=== PATIENT | male | born 1940 | race Caucasian/White ===

== ENCOUNTER 2018-12-03 10:00 | Day surgery (SDC) | payer OTHER ==
[~2018-12-03 10:00] MED LIST: Bupivacaine 0.5% 50 ML MDV ONE; Lidocaine 2% 20 ML MDV ONE
[2018-12-03] MEDS ORDERED: ceFAZolin 2 GM in Premix Bag 1 BAG IV ONE (11:00)
[2018-12-03] MEDS ORDERED: Sodium Chloride 0.9% 1,000 ML IV SCH (11:00)
[2018-12-03] MEDS ORDERED: fentaNYL 100 MCG/2 ML SDV ONE (12:11)
[2018-12-03] MEDS ORDERED: Propofol 200 MG/20 ML SDV ONE (12:11)
--- NOTE | 2018-12-03 17:49 | OR ---
DATE OF PROCEDURE: 12/03/2018 X RAY TECHNOLOGIST: None. PREOPERATIVE DIAGNOSIS: Ulcer left foot, sub fifth metatarsal head. POSTOPERATIVE DIAGNOSES: 1. Ulcer left foot, sub fifth metatarsal head. 2. Soft tissue mass, left foot. ANESTHESIA: Local with IV sedation. HEMOSTASIS: Obtained with an ankle tourniquet on the left ankle, 300 mmHg. ESTIMATED BLOOD LOSS: 10 mL. MATERIALS: None. INJECTABLES: 10 mL of Marcaine 0.5% plain were injected at the beginning of the procedure. PATHOLOGY: Soft tissue mass was sent. CONDITION: Stable. INDICATIONS FOR SURGERY: Recurrent ulcer, sub fifth metatarsal head, left foot, that was unresponsive to conservative measures. PROCEDURE IN DETAIL: The patient was brought to the operating room and placed on the operating table in supine position. Following IV sedation, anesthesia was obtained with a total of 10 mL of Marcaine 0.5% plain. The left foot was then scrubbed, prepped, and draped in the usual aseptic manner. Then, the foot was raised to 60 degrees for hemostasis and exsanguinated using Esmarch bandage. Tourniquet was inflated. Foot was lowered to table. Skin incision was made on the dorsolateral aspect of the left fifth metatarsal head. The incision was 6 cm in length. Incisions were deepened through subcutaneous tissues with care taken to identify and retract all vital neurovascular structures. It was at this point that we noted that there was a soft tissue mass bulging out of the incision, so the soft tissue mass was carefully dissected out using both blunt and sharp dissections with a Whiting tenotomy scissors. It was removed in toto and sent for pathological examination. Then, we made an incision into the fifth metatarsophalangeal joint capsule and carefully dissected the capsule off the fifth metatarsal head. The dorsolateral bony eminence and lateral bony eminence on the fifth metatarsal head were removed and then the plantar distal aspect of the fifth metatarsal head was removed and then smoothed off using hand rasp. The removal was confirmed both visually and fluoroscopically and found to be anatomic. So, then the incision was flushed with copious amounts of sterile saline. Capsular closure was obtained with 3-0 Vicryl, subcutaneous closure with 3-0 Vicryl, and skin closure with 3-0 Prolene in a horizontal mattress configuration. Then, the foot was dressed with Xeroform, 4x4s, Kerlix, and Coban. The patient was returned to recovery room with vital signs stable and neurovascular status intact to both feet. The patient was given instructions to bear weight on the left heel only and not put any weight on the left forefoot and ambulate with a walker. The patient will return to clinic in one week, at which time, he will be re-evaluated. The patient was told to call if he has any other questions or concerns. Austin Foote DPM /[id number]
== END 2018-12-03 15:05 | disposition home or self-care (01) ==
LOC: JP.SDS 10:00
PROVIDERS: ATTEND Podiatrist Foot & Ankle Surgery
DX: L97.522 Non-pressure chronic ulcer of other part of left foot with fat layer exposed (principal); R22.42 Localized swelling, mass and lump, left lower limb; I25.10 Atherosclerotic heart disease of native coronary artery without angina pectoris; I25.2 Old myocardial infarction; I12.9 Hypertensive chronic kidney disease with stage 1 through stage 4 chronic kidney disease, or unspecified chronic kidney disease; N18.3 Chronic kidney disease, stage 3 (moderate); E78.5 Hyperlipidemia, unspecified; K21.9 Gastro-esophageal reflux disease without esophagitis; G20 Parkinson's disease; G62.9 Polyneuropathy, unspecified; Z91.040 Latex allergy status; Z91.048 Other nonmedicinal substance allergy status; Z87.891 Personal history of nicotine dependence; Z79.899 Other long term (current) drug therapy
CPT/HCPCS: 28039; 28288; 88304; J0690; J2001; J2704; J3010; J3490; J7030

== ENCOUNTER 2019-03-03 00:22 | Emergency (ER) | payer OTHER ==
[2019-03-03] MEDS ORDERED: Ibuprofen 600 MG Tab PO ONE (01:07)
--- NOTE | 2019-03-03 01:11 | EDM.PDOC ---
ED HPI GENERAL MEDICAL PROBLEM - General Chief Complaint: Fever Stated Complaint: [facility] Time Seen by Provider: 03/03/19 00:58 Source of Information: Reports: Patient, Family, RN Notes Reviewed History Limitations: Reports: No Limitations - History of Present Illness INITIAL COMMENTS - FREE TEXT/NARRATIVE: 78-year-old gentleman presents emergency department today via EMS services complaint of fever, confusion. He states he had regular checkup with his primary care 2 days ago was not having issues at that time. 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 He states he has had problems with his wound healing post surgery however the last couple of days it has gotten progressively worse with drainage and a foul smell. - Related Data Allergies Allergy/AdvReac Type Severity Reaction Status Date / Time latex Allergy Cannot Verified 12/03/18 07:17 Remember Home Meds: Home Meds Calcium Carbonate 650 mg PO DAILY 12/03/18 [History] Carvedilol [Coreg] 6.25 mg PO DAILY 12/03/18 [History] Chlorthalidone 25 mg PO DAILY 12/03/18 [History] Dorzolamide HCl/Timolol Maleat [Dorzolamide-Timolol Eye Drops] 1 drop EYEBOTH BID 12/03/18 [History] Isosorbide Mononitrate [Imdur] 30 mg PO DAILY 12/03/18 [History] Latanoprost/Pf [Latanoprost 0.005% Eye Drop] 1 drop EYEBOTH BEDTIME 12/03/18 [ History] Simvastatin [Zocor] 40 mg PO BEDTIME 12/03/18 [History] amLODIPine Besylate [Amlodipine Besylate] 10 mg PO DAILY 12/03/18 [History] Carbidopa/Levodopa [Sinemet 25-100 mg Tablet] 1 each PO TID 03/03/19 [History] Past Medical History HEENT History: Reports: Glaucoma Cardiovascular History: Reports: CAD, High Cholesterol, Hypertension, [place] Gastrointestinal History: Reports: Chronic Constipation Genitourinary History: Reports: Prostate Disorder, Renal Calculus Musculoskeletal History: Reports: Arthritis, Back Pain, Chronic Neurological History: Reports: Parkinson's Hematologic History: Reports: Blood Transfusion(s) Oncologic (Cancer) History: Reports: Prostate - Past Surgical History Cardiovascular Surgical History: Reports: Percutaneous Transluminal Angioplasty , Other (See Below) Other Cardiovascular Surgeries/Procedures: angioplasty in 1992 GI Surgical History: Reports: Appendectomy Male Surgical History: Reports: Prostate Biopsy Neurological Surgical History: Reports: Spinal Fusion Musculoskeletal Surgical History: Reports: Amputation, Other (See Below) Other Musculoskeletal Surgeries/Procedures:: bone removed from left foot. left toes amp Oncologic Surgical History: Reports: None Dermatological Surgical History: Reports: None Social & Family History - Family History Family Medical History: Noncontributory - Tobacco Use Smoking Status *Q: Former Smoker Used Tobacco, but Quit: Yes Month/Year Tobacco Last Used: 30 years - Caffeine Use Caffeine Use: Reports: Coffee - Recreational Drug Use Recreational Drug Use: No ED ROS GENERAL - Review of Systems Review Of Systems: See Below Constitutional: Reports: Fever, Chills, Weakness, Other (Confusion) HEENT: Reports: No Symptoms Respiratory: Reports: No Symptoms Cardiovascular: Reports: No Symptoms GI/Abdominal: Reports: No Symptoms : Reports: No Symptoms Musculoskeletal: Reports: No Symptoms Skin: Reports: Erythema, Wound Neurological: Reports: No Symptoms ED EXAM, GENERAL - Physical Exam Exam: See Below Free Text/Narrative:: Examination of the left lower extremity I cannot appreciate a pedal pulse the dressing has been removed there is drainage there is discoloration of the skin is black there is erythema midway up the foot Exam Limited By: No Limitations General Appearance: Alert, WD/WN, No Apparent Distress Respiratory/Chest: No Respiratory Distress, Lungs Clear, Normal Breath Sounds, No Accessory Muscle Use Cardiovascular: Normal Peripheral Pulses, Regular Rate, Rhythm, No Murmur GI/Abdominal: Soft, Non-Tender Course - Vital Signs Last Recorded V/S: Last Vital Signs Temp 99.6 F 03/03/19 01:33 Pulse 76 03/03/19 03:00 Resp 24 H 03/03/19 03:00 BP 144/64 H 03/03/19 03:00 Pulse Ox 93 L 03/03/19 03:00 - Orders/Labs/Meds Orders: Active Orders 24 hr Category Date Time Status Vital Signs [RC] Q1H Care 03/03/19 01:05 Active CULTURE BLOOD [BC] Urgent Lab 03/03/19 01:15 Received CULTURE BLOOD [BC] Urgent Lab 03/03/19 01:20 Received Lactated Ringers [Ringers, Lactated] 1,000 ml Med 03/03/19 01:15 Active IV ASDIRECTED Lactated Ringers [Ringers, Lactated] 1,000 ml Med 03/03/19 02:45 Active IV ASDIRECTED Vancomycin 1 gm Med 03/03/19 02:00 Active Sodium Chloride 0.9% [Normal Saline] 250 ml IV Q12H ceFAZolin [Ancef] 2 gm Med 03/03/19 01:15 Active Sodium Chloride 0.9% [Normal Saline] 50 ml IV Q8H Blood Culture x2 Reflex Set [OM.PC] Urgent Oth 03/03/19 01:05 Ordered Medication Orders Cefazolin Sodium 2 gm/ Sodium (Chloride) 50 mls @ 100 mls/hr IV Q8H [facility] Last Admin: 03/03/19 03:37 Dose: 100 mls/hr Lactated Ringer's (Ringers, Lactated) 1,000 mls @ 999 mls/hr IV ASDIRECTED [facility] Last Admin: 03/03/19 01:28 Dose: 999 mls/hr Vancomycin HCl 1 gm/ Sodium (Chloride) 250 mls @ 150 mls/hr IV Q12H [facility] Last Admin: 03/03/19 01:29 Dose: 150 mls/hr Lactated Ringer's (Ringers, Lactated) 1,000 mls @ 125 mls/hr IV ASDIRECTED [facility] Last Admin: 03/03/19 02:42 Dose: 125 mls/hr Labs: Laboratory Tests 03/03/19 03/03/19 03/03/19 Range/Units 01:15 01:15 01:15 WBC 12.4 H (4.5-11.0) K/uL RBC 3.54 L (4.30-5.90) M/uL Hgb 11.3 L (12.0-15.0) g/dL Hct 34.5 L (40.0-54.0) % MCV 98 (80-98) fL MCH 32 H (27-31) pg MCHC 33 (32-36) % Plt Count 238 (150-400) K/uL Neut % (Auto) 78 H (36-66) % Lymph % (Auto) 8 L (24-44) % Nance % (Auto) 12 H (2-6) % Eos % (Auto) 1 L (2-4) % Baso % (Auto) 0 (0-1) % Sodium 138 L (140-148) mmol/L Potassium 3.4 L (3.6-5.2) mmol/L Chloride 101 (100-108) mmol/L Carbon Dioxide 24 (21-32) mmol/L Anion Gap 16.4 H (5.0-14.0) mmol/L BUN 28 H (7-18) mg/dL Creatinine 1.1 (0.8-1.3) mg/dL Est Cr Clr Drug Dosing 48.92 mL/min Estimated GFR (MDRD) > 60 (>60) Glucose 155 H (74-106) mg/dL Lactic Acid 1.5 (0.4-2.0) mmol/L Calcium 9.1 (8.5-10.1) mg/dL Total Bilirubin 0.4 (0.2-1.0) mg/dL AST 30 (15-37) U/L ALT 20 (12-78) U/L Alkaline Phosphatase 71 (46-116) U/L C-Reactive Protein 16.02 H (0.0-0.3) mg/dL Total Protein 7.5 (6.4-8.2) g/dL Albumin 3.2 L (3.4-5.0) g/dL Globulin 4.3 H (2.3-3.5) g/dL Albumin/Globulin Ratio 0.7 L (1.2-2.2) Procalcitonin ng/mL Urine Color (YELLOW) Urine Appearance (CLEAR) Urine pH (5.0-8.0) Ur Specific [place] (1.008-1.030) Urine Protein (NEGATIVE) mg/dL Urine Glucose (UA) (NEGATIVE) mg/dL Urine Ketones (NEGATIVE) mg/dL Urine Occult Blood (NEGATIVE) Urine Nitrite (NEGATIVE) Urine Bilirubin (NEGATIVE) Urine Urobilinogen (0.2-1.0) EU/dL Ur Leukocyte Esterase (NEGATIVE) 03/03/19 03/03/19 Range/Units 01:15 02:40 WBC (4.5-11.0) K/uL RBC (4.30-5.90) M/uL Hgb (12.0-15.0) g/dL Hct (40.0-54.0) % MCV (80-98) fL MCH (27-31) pg MCHC (32-36) % Plt Count (150-400) K/uL Neut % (Auto) (36-66) % Lymph % (Auto) (24-44) % Nance % (Auto) (2-6) % Eos % (Auto) (2-4) % Baso % (Auto) (0-1) % Sodium (140-148) mmol/L Potassium (3.6-5.2) mmol/L Chloride (100-108) mmol/L Carbon Dioxide (21-32) mmol/L Anion Gap (5.0-14.0) mmol/L BUN (7-18) mg/dL Creatinine (0.8-1.3) mg/dL Est Cr Clr Drug Dosing mL/min Estimated GFR (MDRD) (>60) Glucose (74-106) mg/dL Lactic Acid (0.4-2.0) mmol/L Calcium (8.5-10.1) mg/dL Total Bilirubin (0.2-1.0) mg/dL AST (15-37) U/L ALT (12-78) U/L Alkaline Phosphatase (46-116) U/L C-Reactive Protein (0.0-0.3) mg/dL Total Protein (6.4-8.2) g/dL Albumin (3.4-5.0) g/dL Globulin (2.3-3.5) g/dL Albumin/Globulin Ratio (1.2-2.2) Procalcitonin 0.31 ng/mL Urine Color Yellow (YELLOW) Urine Appearance Clear (CLEAR) Urine pH 7.0 (5.0-8.0) Ur Specific [place] 1.020 (1.008-1.030) Urine Protein 30 H (NEGATIVE) mg/dL Urine Glucose (UA) Normal (NEGATIVE) mg/dL Urine Ketones 15 H (NEGATIVE) mg/dL Urine Occult Blood Moderate (NEGATIVE) Urine Nitrite Negative (NEGATIVE) Urine Bilirubin Negative (NEGATIVE) Urine Urobilinogen Normal (0.2-1.0) EU/dL Ur Leukocyte Esterase Negative (NEGATIVE) Meds: Medications Generic Name Dose Route Start Last Admin Trade Name Freq PRN Reason Stop Dose Admin Cefazolin Sodium 2 gm/ Sodium 50 mls @ 100 mls/hr 03/03/19 01:15 03/03/19 03: 37 Chloride IV 100 mls/hr Q8H ALO Administration Lactated Ringer's 1,000 mls @ 999 mls/hr 03/03/19 01:15 03/03/19 01:28 Ringers, Lactated IV 999 mls/hr ASDIRECTED ALO Administration Vancomycin HCl 1 gm/ Sodium 250 mls @ 150 mls/hr 03/03/19 02:00 03/03/19 01: 29 Chloride IV 150 mls/hr Q12H ALO Administration Lactated Ringer's 1,000 mls @ 125 mls/hr 03/03/19 02:45 03/03/19 02:42 Ringers, Lactated IV 125 mls/hr ASDIRECTED ALO Administration Discontinued Medications Generic Name Dose Route Start Last Admin Trade Name Cayden PRN Reason Stop Dose Admin Ibuprofen 600 mg 03/03/19 01:07 03/03/19 01:33 Motrin PO 03/03/19 01:08 600 mg ONETIME ONE Administration Departure - Departure Time of Disposition: 04:00 Disposition: DC/Tfer to Acute Hospital 02 Condition: Poor Clinical Impression: Cellulitis of foot, left - Discharge Information Referrals: Sanjay Milligan MD [Primary Care Provider] - Forms: ED Department Discharge - My Orders Last 24 Hours: My Active Orders 03/03/19 01:05 Vital Signs [RC] Q1H Blood Culture x2 Reflex Set [OM.PC] Urgent 03/03/19 01:15 CULTURE BLOOD [BC] Urgent Lactated Ringers [Ringers, Lactated] 1,000 ml IV ASDIRECTED ceFAZolin [Ancef] 2 gm Sodium Chloride 0.9% [Normal Saline] 50 ml IV Q8H 03/03/19 01:20 CULTURE BLOOD [BC] Urgent 03/03/19 02:00 Vancomycin 1 gm Sodium Chloride 0.9% [Normal Saline] 250 ml IV Q12H 03/03/19 02:45 Lactated Ringers [Ringers, Lactated] 1,000 ml IV ASDIRECTED - Assessment/Plan Last 24 Hours: My Active Orders 03/03/19 01:05 Vital Signs [RC] Q1H Blood Culture x2 Reflex Set [OM.PC] Urgent 03/03/19 01:15 CULTURE BLOOD [BC] Urgent Lactated Ringers [Ringers, Lactated] 1,000 ml IV ASDIRECTED ceFAZolin [Ancef] 2 gm Sodium Chloride 0.9% [Normal Saline] 50 ml IV Q8H 03/03/19 01:20 CULTURE BLOOD [BC] Urgent 03/03/19 02:00 Vancomycin 1 gm Sodium Chloride 0.9% [Normal Saline] 250 ml IV Q12H 03/03/19 02:45 Lactated Ringers [Ringers, Lactated] 1,000 ml IV ASDIRECTED Plan: Assessment Acuity = acute Site and laterality = cellulitis left foot complicated with recent midfoot amputation Etiology = probable bacterial cause Manifestations = fever Location of injury = Home Lab values = WBC elevated 12.4 consistent leukocytosis, sodium low at 138 consistent hyponatremia potassium low 3.4 consistent with hypokalemia lactic acid normal 1.5 CRP elevated 16.02 urinalysis unremarkable Plan Blood cultures are pending he has been started on antibiotics of Ancef and vancomycin initially called and discussed the case with [facility] MOD Dr. Corbin who did approve a transfer to another facility recommending podiatry with the original surgeon. I called and discussed case with Dr. Holt podiatry on-call at [facility], also discussed case with hospitalist and ER physician. He will be transferred via EMS ground. This note was dictated using Net[employer] voice recognition software please call with any questions on syntax or grammar.
[2019-03-03] MEDS ORDERED: Lactated Ringers 1,000 ML IV SCH ×2 (01:15→02:45)
[2019-03-03] MEDS ORDERED: ceFAZolin 2 GM in Sodium Chloride 0.9% 50 ML IV SCH (01:15)
== END 2019-03-03 05:08 ==
LOC: JP.ED 00:22
DX: L03.116 Cellulitis of left lower limb (principal); I10 Essential (primary) hypertension; E78.00 Pure hypercholesterolemia, unspecified; I25.2 Old myocardial infarction; G20 Parkinson's disease; Z91.040 Latex allergy status; Z79.899 Other long term (current) drug therapy; Z90.49 Acquired absence of other specified parts of digestive tract; Z87.891 Personal history of nicotine dependence
CPT/HCPCS: 36415; 80053; 81003; 83605; 84145; 85025; 86140; 87040; 96361; 96365; 96366; 96367; 99284; A9270; J0690; J3370; J7050; J7120